=== PATIENT | male | born 1965 | race Caucasian/White ===

== ENCOUNTER 2021-12-05 09:21 | Emergency (ER) | payer OTHER, SELFPAY ==
--- NOTE | ~2021-12-05 | XR_ITS ---
XR abdomen/kub 1V DATE: 12/05/2021 11:33 INDICATION: Left flank pain TECHNIQUE: AP projection, 2 views COMPARISON: 12/05/[address] abdomen pelvis FINDINGS: Subtle small left pelvic calcification may correlate to the 2 mm calculus distal left urete r documented on 12/05/[address] abdomen pelvis examination, although this does appear to be higher than expected based upon the 12/05/2021 CT examination.. The psoas shadows are intact. No visceromegaly is evident. No bowel obstruction. Lung bases appear clear. IMPRESSION: Possible subtle small calcification corresponding to CT documented distal left ureteral c alculus, although this appears more superiorly situated than the calculus noted on CT examination. Reviewed, dictated and finalized at [facility]. Reviewed, dictated and finalized at [facility]. IMPRESSION: Possible subtle small calcification corresponding to CT documented distal left ureteral calculus, although this appears more superiorly situated t mathews the calculus noted on CT examination.
--- NOTE | ~2021-12-05 | CT_ITS ---
EXAMINATION: CT abdomen pelvis wo con DATE: 12/05/2021 09:48 INDICATION: Left lower quadrant abdominal pain. TECHNIQUE: Computed tomography (CT) of the abdomen and pelvis was performed without intravenous contr ast. Automated exposure control and iterative reconstruction technique were employed. The dose-length product was 1407.99 mGy-cm. COMPARISON: None. FINDINGS: The visualized portions of the lung bases demonstrate minimal atelectasis. No pleural effus ion. The heart size is normal. There are coronary artery calcifications. No pericardial effusion. The liver, gallbladder, spleen, pancreas, adrenal glands, and right kidney are normal. There is a 2.8 cm cyst in left kidney. There is mild left hydronephrosis and hydroureter. There is a 2 mm stone in dis vahe left ureter. The prostate is mildly enlarged. There is an umbilical hernia containing fat. There is diverticulosis of the colon without evidence of diverticulitis. There are no dilated loops of jayson l. There are no pathologically enlarged lymph nodes. There is no free intraperitoneal fluid. There ar e chronic bilateral L5 pars defects. There is a 10 mm anterolisthesis of L5 on S1. There is severe de generative disc disease at L5-S1. IMPRESSION: 1. 2 mm stone in distal left ureter with mild left hydronephrosis and hydroureter. Reviewed, dictated and finalized at [facility]. IMPRESSION: 1. 2 mm stone in distal left ureter with mild left hydronephrosis and hydroure ter.
[2021-12-05 09:26] VITALS: BP 179/82; PULSE 75; RESP 20; TEMP 36.6; O2SAT 100
--- NOTE | 2021-12-05 09:39 | ED.ABDPAIN ---
HPI - Abdominal Pain General Chief Complaint: Abdominal Pain Stated Complaint: flank pain Time Seen by Provider: 12/05/21 09:29 History of Present Illness HPI narrative: 56-year-old male presents to the emergency room complaining of left flank pain that began this morning. Patient states the pain starts in his lower back and radiates into his left lower quadrant. Denies nausea, vomiting, diarrhea. Patient states he feels like he might be constipated at this time. Also reports having decreased urinary stream patient also endorses being outside yesterday for several hours in the heat, admits to not keeping himself adequately hydrated. Denies a history of kidney stones. Has had a recent normal colonoscopy. Related Data Home Medications Medication Instructions Recorded Confirmed pantoprazole 40 mg tablet,delayed 40 mg PO DAILY 04/14/19 04/14/19 release Allergies Allergy/AdvReac Type Severity Reaction Status Date / Time No Known Allergies Allergy Verified 04/16/19 07:04 Review of Systems Review of Systems: CONSTITUTIONAL: Denies fever, chills, or sweats. EYES: Denies visual changes, redness, or discharge. ENT: Denies rhinorrhea, congestion, sore throat, or otalgia. CARDIOVASCULAR: Denies chest pain, palpitations, or edema. RESPIRATORY: Denies cough or dyspnea. GASTROINTESTINAL: Reports left flank pain GENITOURINARY: Denies dysuria or hematuria. SKIN: Denies rash or itching. MUSCULOSKELETAL: Denies back pain, joint pain, or myalgia. NEUROLOGIC: Denies headache, numbness, dizziness, or weakness. PSYCHIATRIC: Denies anxiety or depression. PMFSH Past Medical History Medical History Back pain Chronic GERD Obesity Family History Family History Other CAD (coronary artery disease) Colon polyp Diabetes mellitus Hypertension Exam Narrative: GENERAL: Well-appearing, well-nourished, no physical limitations, and in no acute distress. HEAD: Normocephalic, atraumatic. EYES: Conjunctivae normal, PERRLA and EOMI. CHEST: Clear to auscultation. No respiratory distress. No wheezes rales or rhonchi. No tenderness. HEART: Regular rate and rhythm. No murmur heard. Normal peripheral pulses. ABDOMEN: Soft, left lower quadrant tenderness, nondistended, normal active bowel sounds. BACK: No CVA tenderness; No cervical/thoracic/lumbar tenderness, step-offs, bony abnormality; FROM EXTREMITIES: Normal range of motion. No edema. No clubbing or cyanosis SKIN: Warm, dry, no rash. No noted wounds NEURO: No focal deficits. Alert and oriented x3. MAEW. CN's II-XI intact bilaterally, normal gait PSYCH: Cooperative. Normal mood and affect. Course Vital Signs Vital signs: Vital Signs Temperature 36.6 C 12/05/21 09:26 Pulse Rate 75 12/05/21 09:26 Respiratory Rate 20 12/05/21 09:26 Blood Pressure 179/82 H 12/05/21 09:26 Pulse Oximetry 100 12/05/21 09:26 Oxygen Delivery Room Air 12/05/21 09:26 Temperature 36.6 C 12/05/21 09:26 Pulse Rate 75 12/05/21 09:26 Respiratory Rate 20 12/05/21 09:26 Blood Pressure 179/82 H 12/05/21 09:26 Pulse Oximetry 100 12/05/21 09:26 Oxygen Delivery Room Air 12/05/21 09:26 MDM - Abdominal Pain MDM Narrative Medical decision making narrative: 56-year-old male presenting with left lower quadrant/flank pain. Abdominal exam is without Peritoneal signs. CT scan shows a 2 mm stone at the distal UV with mild hydronephrosis and hydroureter. UA showed evidence of a urinary tract infection. Patient was given a liter of fluid and responded well to pain medicines. 1 g of Rocephin was administered and patient will follow-up with urology. Lab Data Result diagrams: 12/05/21 09:56 12/05/21 09:56 Labs: Lab Results 12/05/21 12/05/21 12/05/21 Range/Units 09:56 09:56 09:56 WBC 9.1 (4.5-10.0) K/mm3 RBC 4.92 (4.6-6
[2021-12-05 10:03] LABS: Basophils Absolute Auto 0.1 K/mm3 (0.0-0.1); Basophils Percent Auto 0.5 % (0.2-1.2); Eosinophils Percent Auto 0.3 % (0-4.4); Hematocrit 46.2 % (42.0-52.0); Hemoglobin 15.9 g/dL (14.0-18.0); Immature Granulocyte Absolute 0.03 K/mm3 (0.00-0.031); Immature Granulocyte Percent A 0.3 % (0-0.5); Lymphocytes Absolute Auto 1.23 K/mm3 (0.9-3.2); Lymphocytes Percent Auto 13.5 % (18.3-44.2); Mean Corpuscular HGB Conc 34.4 g/dl (32-36); Mean Corpuscular Hemoglobin 32.3 pg (26-34); Mean Corpuscular Volume 93.9 fl (80-100); Monocytes Absolute Auto 0.7 K/mm3 (0.1-0.6); Monocytes Percent Auto 7.6 % (2.6-8.5); Neutrophils Absolute Auto 7.1 K/mm3 (1.3-6.7); Neutrophils Percent Auto 77.8 % (45.5-73.1); Platelet Count Result 230 k/mm3 (150-375); Red Blood Count 4.92 M/mm3 (4.6-6.20); Red Cell Distribution Width 12.5 % (11.5-14.5); White Blood Count 9.1 K/mm3 (4.5-10.0)
[2021-12-05 10:06] LABS: Add Urine Microscopic? YES; Appearance Urine Clear (Clear); Bilirubin Urine Negative (Negative); Blood Urine 2+ (Negative); Color Urine Yellow (Yellow); Glucose Urine UA 2+ mg/dL (Negative); Ketones Urine Negative (Negative); Leukocyte Esterase Ur Negative LEU/UL (Negative); Nitrate Urine Negative (Negative); Protein Urine Negative (Negative); Specific Grav Ur 1.025 (1.001-1.035); Urobilinogen Urine 0.2 mg/dL (<2.0)
[2021-12-05 10:13] LABS: Alanine Aminotransferase 32 U/L (6-50); Albumin Level 4.4 g/dL (3.5-5.1); Alkaline Phosphatase 64 U/L (38-126); Anion Gap 8 mmol/L (8-16); Aspartate Amino Transferase 22 U/L (17-59); Bilirubin,Total 0.5 mg/dL (0.2-1.3); Blood Urea Nitrogen 23 mg/dL (9-20); Calcium 8.6 mg/dL (8.4-10.2); Carbon Dioxide 25 mmol/L (22-30); Chloride 101 mmol/L (98-107); Estimated CRCL calculation 87 ml/min; Estimated Glomerular Filt Rate > 60; Glucose 339 mg/dL (65-110); Lipase 88 U/L (23-300); Potassium 4.5 mmol/L (3.4-5.0); Sodium 134 mmol/L (137-145)
[2021-12-05 10:20] LABS: Budding Yeast Urine Present /hpf; Mucus Urine Rare /lpf; Squamous Epithelial Cell Urine Rare /hpf (Few); Uric Acid Crystals Urine Present /hpf
[2021-12-05] MEDS: SODIUM CHLORIDE 0.9% IV 1,000 ML 999 ML IV CONT (10:32)
[2021-12-05] MEDS: fentaNYL CITRATE INJ (*CRX) 100 MCG/2 ML VIAL 50 MCG IV PUSH (10:33)
[2021-12-05] MEDS: KETOROLAC 30 MG/ML VIAL (*BKC) IV PUSH (10:34)
[2021-12-05 11:59] VITALS: BP 147/84; PULSE 72; RESP 16; O2SAT 98
== END 2021-12-05 12:00 | disposition home or self-care (01) ==
PROVIDERS: Emergency Provider Nurse Practitioner Family
DX: N20.0 Calculus of kidney (principal); K21.9 Gastro-esophageal reflux disease without esophagitis
CPT/HCPCS: 36415; 74018; 74176; 80053; 81001; 83690; 85025; 96361; 96374; 96375; 99284; J0696; J1885; J3010; J7030

== ENCOUNTER 2023-11-29 08:52 | Emergency (ER) | payer OTHER, SELFPAY ==
--- NOTE | ~2023-11-29 | CT_ITS ---
EXAMINATION: CT abdomen pelvis wo con DATE: 11/29/2023 09:37 INDICATION: Right flank pain. TECHNIQUE: Computed tomography (CT) of the abdomen and pelvis was performed without intravenous contr ast. Automated exposure control and iterative reconstruction technique were employed. The dose-length product was 741.33 mGy-cm. COMPARISON: CT abdomen and pelvis 12/05/2021 FINDINGS: The visualized portions of the lung bases demonstrate minimal atelectasis. No pleural effus ion. The heart size is normal. No pericardial effusion. The liver, gallbladder, spleen, pancreas, and adrenal glands are normal. There is a 13 mm cyst in left kidney. There is mild right hydronephrosis. There is a 2 mm stone in proximal right ureter. The prostate is mildly enlarged. There is an umbilic al hernia containing fat. There are no dilated loops of bowel. The appendix is normal. There are no p athologically enlarged lymph nodes. There is no free intraperitoneal fluid. There are chronic bilater al L5 pars defects. There is 10 mm anterolisthesis of L5 on S1. There is severe lower lumbar spondylo sis. IMPRESSION: 1. 2 mm stone in proximal right ureter with mild right hydronephrosis. Reviewed, dictated and finalized at location [facility].
--- NOTE | 2023-11-29 09:09 | ED.GENADULT ---
HPI - General Adult General Chief complaint: Urogenital-Male Stated complaint: Kidney stone? Time Seen by Provider: 11/29/23 09:04 History of Present Illness HPI narrative: Patient is 58-year-old gentleman who presents emergency department chief complaint of right flank pain radiating down the right lower quadrant. Patient reports that he has history of kidney stones was able to pass them previously the patient states that the pain started suddenly this morning reports he is unable to get comfortable reports that he is hurting so bad that he is sweating the patient reports history of hypertension and diabetes Related Data Allergies Allergy/AdvReac Type Severity Reaction Status Date / Time No Known Allergies Allergy Verified 11/29/23 09:15 Review of Systems Review of Systems: A 10 system review of systems was completed on the patient and is negative except for what is stated in the HPI. Nursing and ancillary documentation was reviewed. PMFSH Past Medical History Medical History Allergies Back pain BMI 35.0-35.9,adult BMI 37.0-37.9, adult Bumps on skin Chest pain Chronic GERD Diabetes Diabetes mellitus with hyperglycemia Elevated BP without diagnosis of hypertension Encounter to establish care Family history of [place] (myocardial infarction) Hyperlipidemia Hypersomnia Hypertension senior care (current) use of oral hypoglycemic drugs Low back pain Obesity Polycythemia Screening for diabetes mellitus Snoring Family History Family History Father Cancer Heart disease Other CAD (coronary artery disease) Colon polyp Diabetes mellitus Hypertension Social History Social History Smoking status: Never smoker Alcohol intake: never Substance use: never Lack of Transportation: No Lack of Food: Never True Current Housing: I Have Housing Concerned About Future Housing: No Difficulty Paying Gas/Electric Bills: No Difficulty Paying for Meds: No Currently Unemployed: No Education: High School Diploma/GED Difficulty w/ Childcare or Family Care: No Exam Narrative: GENERAL: Well-appearing, well-nourished, and in moderate acute pain distress. Diaphoretic HEAD: Normocephalic, atraumatic. EYES: PERRLA and EOMI. ENT: Nares clear, no rhinorrhea or epistaxis. Mucous membranes moist. NECK: Supple. CHEST: Clear to auscultation. No respiratory distress. HEART: Regular rate and rhythm. No murmur heard. Normal peripheral pulses. ABDOMEN: Soft, nontender, nondistended, normal active bowel sounds. EXTREMITIES: Normal range of motion. No edema. SKIN: Warm, dry, no rash. NEURO: No focal deficits. Alert and oriented x3. PSYCH: Normal mood and affect. Course Vital Signs Vital signs: Vital Signs Temperature 36.4 C L 11/29/23 09:15 Pulse Rate 70 11/29/23 09:15 Respiratory Rate 19 11/29/23 09:15 Blood Pressure 172/91 H 11/29/23 09:15 Pulse Oximetry 100 11/29/23 09:15 Oxygen Delivery Room Air 11/29/23 09:15 Temperature 36.4 C L 11/29/23 09:15 Pulse Rate 71 11/29/23 10:19 Respiratory Rate 15 11/29/23 10:19 Blood Pressure 154/76 H 11/29/23 10:19 Pulse Oximetry 97 11/29/23 10:19 Oxygen Delivery Room Air 11/29/23 09:15 Medical Decision Making [facility] Narrative Medical decision making narrative: Differential diagnosis includes UTI, ureterolithiasis, pyelonephritis Laboratory studies were obtained on the patient showed normal CBC normal CMP CT scan of the abdomen pelvis showed a 2 mm proximal stone Patient was started on Flomax patient will be given pain control and antiemetics and a urine strainer and referred to Urology. Vital Signs Vital Signs: Vital Signs Temperature 36.4 C L 11/29/23 09:15 Pulse Rate 70 11/29/23 09:15 Respiratory Rate 19 11/28
[2023-11-29 09:15] VITALS: BP 172/91; PULSE 70; RESP 19; TEMP 36.4; O2SAT 100
[2023-11-29] MEDS: ONDANSETRON INJ 4 MG/2 ML VIAL IV PUSH (09:20)
[2023-11-29] MEDS: MORPHINE SULFATE (*CRX) 4 MG/ML INJ IV PUSH (09:21)
[2023-11-29] MEDS: SODIUM CHLORIDE 0.9% IV 1,000 ML 999 ML IV CONT (09:21)
[2023-11-29 09:30] LABS: Basophils Absolute Auto 0.1 K/mm3 (0.0-0.1); Basophils Percent Auto 0.9 % (0.2-1.2); Eosinophils Percent Auto 0.5 % (0-4.4); Hematocrit 45.6 % (42.0-52.0); Hemoglobin 15.7 g/dL (14.0-18.0); Immature Granulocyte Absolute 0.01 K/mm3 (0.00-0.031); Immature Granulocyte Percent A 0.2 % (0-0.5); Lymphocytes Percent Auto 28.7 % (18.3-44.2); Mean Corpuscular HGB Conc 34.4 g/dl (32-36); Mean Corpuscular Hemoglobin 32.7 pg (26-34); Monocytes Absolute Auto 0.6 K/mm3 (0.1-0.6); Monocytes Percent Auto 9.9 % (2.6-8.5); Neutrophils Absolute Auto 3.3 K/mm3 (1.3-6.7); Neutrophils Percent Auto 59.8 % (45.5-73.1); Platelet Count Result 230 k/mm3 (150-375); Red Cell Distribution Width 12.1 % (11.5-14.5); White Blood Count 5.6 K/mm3 (4.5-10.0)
[2023-11-29 09:38] LABS: Alanine Aminotransferase 36 U/L (6-50); Albumin Level 4.4 g/dL (3.5-5.1); Alkaline Phosphatase 63 U/L (38-126); Anion Gap 8 mmol/L (4-12); Aspartate Amino Transferase 23 U/L (17-59); Bilirubin,Total 0.8 mg/dL (0.2-1.3); Blood Urea Nitrogen 23 mg/dL (9-20); Calcium 9.5 mg/dL (8.4-10.2); Carbon Dioxide 24 mmol/L (22-30); Chloride 105 mmol/L (98-107); Estimated CRCL calculation 90 ml/min; Estimated Glomerular Filt Rate > 60; Glucose 284 mg/dL (65-110); Lipase 68 U/L (23-300); Sodium 137 mmol/L (137-145)
[2023-11-29] MEDS: TAMSULOSIN HCL 0.4 MG CAPSULE PO (10:12)
[2023-11-29 10:19] VITALS: BP 154/76; PULSE 71; RESP 15; O2SAT 97
[2023-11-29 10:43] LABS: Bacteria Urine None Seen /hpf; Need Manual Microscopic Reviewed; RBC Urine >100 /hpf (0-2); Squamous Epithelial Cell Urine None Seen /hpf (Few); WBC Urine 0-5 /hpf (0-3)
[2023-11-29 10:46] LABS: Appearance Urine Turbid (Clear); Bilirubin Urine Negative (Negative); Blood Urine 3+ (Negative); Color Urine Dark Brown (Yellow); Glucose Urine UA 3+ mg/dL (Negative); Ketones Urine Negative (Negative); Leukocyte Esterase Ur 1+ LEU/UL (Negative); Nitrate Urine Negative (Negative); Protein Urine 2+ mg/dL (Negative); Specific Grav Ur 1.026 (1.001-1.035); Urobilinogen Urine 0.2 mg/dL (<2.0)
[2023-11-29 10:47] LABS: Add Urine Microscopic? YES
== END 2023-11-29 11:33 | disposition home or self-care (01) ==
PROVIDERS: Emergency Provider Emergency Medicine; PCP Nurse Practitioner Family
DX: N13.2 Hydronephrosis with renal and ureteral calculous obstruction (principal); E11.9 Type 2 diabetes mellitus without complications; D75.1 Secondary polycythemia; K21.9 Gastro-esophageal reflux disease without esophagitis; E78.5 Hyperlipidemia, unspecified; Z87.442 Personal history of urinary calculi; Z79.84 Long term (current) use of oral hypoglycemic drugs; Z79.85 Long-term (current) use of injectable non-insulin antidiabetic drugs; Z79.899 Other long term (current) drug therapy
CPT/HCPCS: 36415; 74176; 80053; 81001; 83690; 85025; 96361; 96374; 96375; 99284; A9270; J2270; J2405; J7030

== ENCOUNTER → 2024-03-13 14:21 | Outpatient (CLI) | payer OTHER, SELFPAY ==
--- NOTE | ~2024-03-13 | XR_ITS ---
XR hip LT min 2V 03/13/2024 14:32 INDICATION: Left hip pain. No injury. PROCEDURE: 2 views left hip COMPARISON: No prior studies for comparison. FINDINGS: Fracture, dislocation or subluxation is not identified. The soft tissues appear within norm al limits. No foreign bodies are identified. IMPRESSION: 1: NO ACUTE BONE OR JOINT ABNORMALITY IDENTIFIED. Reviewed, dictated and finalized at location [facility].
== END ==
LOC: EXPTRAD 14:23
PROVIDERS: PCP Nurse Practitioner Family; Visit Provider Nurse Practitioner Family
DX: M25.552 Pain in left hip (principal)
CPT/HCPCS: 73502

== ENCOUNTER 2024-11-05 15:38 | Emergency (ER) | payer OTHER, SELFPAY ==
[2024-11-05 15:44] VITALS: BP 143/88; PULSE 84; RESP 18; TEMP 36.5; O2SAT 96
--- NOTE | 2024-11-05 16:03 | ECG_ITS ---
Test Date: 2024-11-05 16:09:58 Measurements Intervals [place] Rate: 71 P: 27 NM: 159 QRS: -4 QRSD: 110 T: -5 QT: 356 QTc: 388 Interpretive Statements SINUS RHYTHM DELAYED PRECORDIAL R/S TRANSITION MINIMAL Q WAVES- HIGH LATERAL LEADS BORDERLINE T WAVE ABNORMALITY- INFERIOR LEADS BASELINE ARTIFACT- I, II, III, AVR, AVL ,AVF BORDERLINE ECG No previous ECG available for comparison Electronically Signed On 11-06-2024 08:10:10 CDT by Олег Fraga D.O.
--- NOTE | 2024-11-05 16:04 | ED.GENADULT ---
HPI - General Adult General Chief complaint: Unspecified Stated complaint: dizziness Time Seen by Provider: 11/05/24 15:45 Source: patient and RN notes reviewed Mode of arrival: ambulatory Limitations: no limitations History of Present Illness HPI narrative: 59-year-old male presents Express Care complaining of dizziness for 1 week. Patient reports at the dizziness is worse when he is lying flatter if he turns his head too quickly. Patient states he feels like the room was spinning aware that he has and motion. Patient denies any lightheadedness or syncope. Patient denies any slurred speech, weakness, confusion, vision changes, chest pain, difficulty breathing, or headaches. Patient says that his right ear has been hurting as well. Patient denies any difficulty ambulating. Patient does have a history of diabetes is currently on multiple medications for it. Patient has not tried anything [id number] did try the help the dizziness. Related Data Allergies Allergy/AdvReac Type Severity Reaction Status Date / Time No Known Allergies Allergy Verified 11/05/24 15:45 Review of Systems Review of Systems: CONSTITUTIONAL: Denies fever, chills, or sweats. EYES: Denies visual changes, redness, or discharge. ENT: Denies rhinorrhea, congestion, sore throat,. Positive for otalgia. CARDIOVASCULAR: Denies chest pain, palpitations, presyncope, lightheadedness, syncope, or edema. Positive for dizziness. RESPIRATORY: Denies cough or dyspnea. GASTROINTESTINAL: Denies abdominal pain, nausea, vomiting, or diarrhea. GENITOURINARY: Denies dysuria or hematuria. SKIN: Denies rash or itching. MUSCULOSKELETAL: Denies back pain, joint pain, or myalgia. NEUROLOGIC: Denies headache, numbness, slurred speech, focal weakness, facial droop, or weakness. PSYCHIATRIC: Denies anxiety or depression. All other systems reviewed are negative, except as documented in HPI. 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 Hyperlipidemia Diabetes Bumps on skin Hypersomnia Snoring Chest pain Low back pain Encounter to establish care Family history of [place] (myocardial infarction) BMI 37.0-37.9, adult Screening for diabetes mellitus Allergies Obesity Back pain Chronic GERD Family History Family History Father Cancer Heart disease Other CAD (coronary artery disease) Colon polyp Diabetes mellitus Hypertension Social History Social History Smoking status: Never smoker Alcohol intake: never Substance use: never Lack of Transportation: No Lack of Food: Never True Current Housing: I Have Housing Concerned About Future Housing: No Difficulty Paying Gas/Electric Bills: No Difficulty Paying for Meds: No Currently Unemployed: No Education: High School Diploma/GED Difficulty w/ Childcare or Family Care: No Comments At the time of my signature, I reviewed and agree with the nursing past medical, surgical, social, and family history. There is no relevant family history pertinent to the patient complaint. Exam Narrative: GENERAL: This is a well-nourished, well-developed adult, in no apparent distress. They are non ill-appearing, nontoxic appearing. Patient is ambulatory with a steady gait. HEAD: normocephalic, atraumatic. EYES: Sclera clear/white. Conjunctiva normal. Vision is grossly intact. Extraocular movements intact. No nystagmus at rest. Pupils PERRLA. Derby-Hallpike maneuver showed horizontal nystagmus towards the right with severe symptoms. EARS: External ears normal, auditory canals clear and without drainage, TMs normal without perforation. Hearing grossly intact. NOSE: External nose normal with no obvious nasal discharge, nasal turbinates without redness, no rhinorrhea. Oropharynx: Mucous membranes moist, tongue midline. NECK: Neck supple, non-tender without lymphadenopathy, masses or thyromegaly. No carotid bruits bilaterally CARDIOVASCULAR: Regular rate and rhythm without murmurs, gallops, or rubs. RESPIRATORY: Clear to auscultation. Breath sounds equal bilaterally. No wheezes, rales, or rhonchi. SKIN: warm, Dry, intact with no suspicious lesions or rash, good texture and turgor. NEURO: awake, alert, and oriented to person, place and time. There were no obvious focal neurologic abnormalities. 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 BACK: Nontender without deformity. Course Course Emergency Course: Portions of this record may have been created with voice recognition software Level of Care: Express Care Visit Vital Signs Vital signs: Vital Signs Temperature 97.7 F 11/05/24 15:44 Pulse Rate 84 11/05/24 15:44 Respiratory Rate 18 11/05/24 15:44 Blood Pressure 143/88 H 11/05/24 15:44 Pulse Oximetry 96 11/05/24 15:44 Oxygen Delivery Room Air 11/05/24 15:44 Temperature 97.7 F 11/05/24 15:44 Pulse Rate 83 11/05/24 16:12 Respiratory Rate 18 11/05/24 15:44 Blood Pressure 131/84 11/05/24 16:13 Pulse Oximetry 96 11/05/24 15:44 Oxygen Delivery Room Air 11/05/24 15:44 Reviewed Medical Decision Making MDM Narrative Medical decision making narrative: NIH score 0, low suspicion for CVA. Symptoms have persisted over the last week. During Todd-Hallpike maneuver patient developed severe symptoms of dizziness with horizontal nystagmus towards the right. Symptoms consistent with BPPV or peripheral vertigo. Neurological exam otherwise unremarkable. Blood glucose was 312, EKG sinus rhythm without ischemic findings. Patient blood sugars elevated but he denies any polydipsia, polyphagia, polyuria, abnormal weight loss, there is no signs of dehydration, patient is not tachycardic. Advised patient to follow-up about blood sugar with his PCP and discuss further management options including insulin. Patient orthostatics are negative. Will treat with meclizine. Discussed physical exam findings. Advised supportive measures and signs/symptoms to go to the ER. Pt is appropriate for outpt treatment and f/u. Differential Diagnosis Differential Diagnosis: Vertigo, benign paroxysmal positional vertigo, vestibular disorder, CVA Vital Signs Vital Signs: Vital Signs Temperature 97.7 F 11/05/24 15:44 Pulse Rate 84 11/05/24 15:44 Respiratory Rate 18 11/05/24 15:44 Blood Pressure 143/88 H 11/05/24 15:44 Pulse Oximetry 96 11/05/24 15:44 Oxygen Delivery Room Air 11/05/24 15:44 Temperature 97.7 F 11/05/24 15:44 Pulse Rate 83 11/05/24 16:12 Respiratory Rate 18 11/05/24 15:44 Blood Pressure 131/84 11/05/24 16:13 Pulse Oximetry 96 11/05/24 15:44 Oxygen Delivery Room Air 11/05/24 15:44 Lab Data Labs: Lab Results 11/05/24 Range/Units 16:06 POC Capillary Glucose 312 H (65-105) mg/dl ECG Data EKG #1: Attestation: I personally reviewed and interpreted this ECG as follows: ECG completion date: 11/05/24 ECG completion time: 16:09 Prior ECG tracings: not available for review EKG Interpretation: normal rate, sinus rhythm, no ectopy, normal QRS, normal QT and NL axis Critical Care Time Critical Care Time Critical Care Time: No Discharge Plan Discharge Clinical Impression: Dizziness Patient Disposition: Home Condition: Stable Instructions: Benign Paroxysmal Positional Vertigo (ED) Additional Instructions: Your EKG is normal today. It appears her symptoms are likely related to vertigo or benign proximal positional vertigo, please take the meclizine as directed. Do not drive or operate machinery while taking meclizine as it may make you drowsy. Blood sugar is elevated today, please follow-up with your PCP for further management of your diabetes. Follow-up with PCP in 3-5 days. Please go to the ER if you develops any signs of dehydration, excessive urination, excessive hunger, excessive thirst, slurred speech, facial drooping, confusion, one-sided weakness, difficulty walking, uncontrollable dizziness, headaches, vision changes, or any other concerns. Patient Language: Korean Prescriptions: New meclizine 25 mg tablet 25 mg PO QID PRN (Reason: vertigo or dizziness) Qty: 30 0RF No Action dapagliflozin propanediol [Farxiga] 10 mg tablet 10 mg PO QAM Qty: 90 3RF (DME) blood-glucose meter [Blood Glucose Monitoring] Kit See Rx Instructions .Route Qty: 1 0RF Rx Instructions: check fasting blood sugar daily lisinopril 20 mg tablet 20 mg PO DAILY Qty: 90 3RF atorvastatin 10 mg tablet 10 mg PO DAILY Qty: 90 3RF Follow-up/Referrals: Grimaldo,Stephani, COATER [Primary Care Provider] - Time of Disposition: 16:26
[2024-11-05 16:11] VITALS: BP 140/77; PULSE 74
[2024-11-05 16:12] VITALS: BP 136/81; PULSE 83
[2024-11-05 16:13] VITALS: BP 131/84
[2024-11-05 16:15] LABS: Glucose Point of Care 312 mg/dl (65-105)
== END 2024-11-05 16:30 | disposition home or self-care (01) ==
PROVIDERS: PCP Nurse Practitioner Family
DX: R42 Dizziness and giddiness (principal); I10 Essential (primary) hypertension; E11.9 Type 2 diabetes mellitus without complications; E78.5 Hyperlipidemia, unspecified; K21.9 Gastro-esophageal reflux disease without esophagitis; E66.9 Obesity, unspecified; Z68.34 Body mass index [BMI] 34.0-34.9, adult; Z82.49 Family history of ischemic heart disease and other diseases of the circulatory system
CPT/HCPCS: 82948; 93005; 99213; G0463

== ENCOUNTER 2025-01-26 09:32 | Outpatient (CLI) | payer OTHER, SELFPAY ==
--- NOTE | 2025-01-26 09:43 | EST_ITS ---
Patient Info Name: Ady Dale Age: 59 years : 1965 Gender: Male Ht: 71 in Wt: 250 lbs BSA: 2.42 m2 HR: 64 bpm BP: 158 / 85 mmHg Exam Date: 01/26/2025 9:43 AM Patient Status: O Admit Date: 01/26/2025 Exam Type: CA stress test treadmill A treadmill exercise stress test was performed. Staff Attending Provider: Stephani Grimaldo Exercise Technologist: Lucretia De La Fuente Exercise Physician: Олег Fraga DO Summary 1. 1. Negative [facility] exercise stress test for ischemic ST changes by ECG criteria. 2. 2. Good functional capacity, achieving 10 METs of workload. 3. 3. Hypertensive response to exercise. 4. 4. Appropriate HR response to exercise. 5. 5. Appropriate HR recovery at 1 minute post exercise. 6. 6. No imaging with stress testing. 7. 7. Patient informed of the above results. Protocol: [place] Stress ECG Details Stage: REST Duration (min): 1 min : 30 sec Speed (mph): 0.0 Grade (%): 0 HR (bpm): 64 SBP (mmHg): 158 DBP (mmHg): 85 METS: --- Stage: REST Duration (min): 10 min : 31 sec Speed (mph): 0.0 Grade (%): 0 HR (bpm): 67 SBP (mmHg): 158 DBP (mmHg): 85 METS: --- Stage: STAGE 1 Duration (min): 1 min : 0 sec Speed (mph): 1.7 Grade (%): 10 HR (bpm): 94 SBP (mmHg): 158 DBP (mmHg): 85 METS: --- Stage: STAGE 1 Duration (min): 2 min : 0 sec Speed (mph): 1.7 Grade (%): 10 HR (bpm): 95 SBP (mmHg): 158 DBP (mmHg): 85 METS: --- Stage: STAGE 1 Duration (min): 3 min : 0 sec Speed (mph): 1.7 Grade (%): 10 HR (bpm): 97 SBP (mmHg): 195 DBP (mmHg): 84 METS: --- Stage: STAGE 2 Duration (min): 1 min : 0 sec Speed (mph): 2.5 Grade (%): 12 HR (bpm): 105 SBP (mmHg): 195 DBP (mmHg): 84 METS: --- Stage: STAGE 2 Duration (min): 2 min : 0 sec Speed (mph): 2.5 Grade (%): 12 HR (bpm): 109 SBP (mmHg): 197 DBP (mmHg): 86 METS: --- Stage: STAGE 2 Duration (min): 3 min : 0 sec Speed (mph): 2.5 Grade (%): 12 HR (bpm): 114 SBP (mmHg): 197 DBP (mmHg): 86 METS: --- Stage: STAGE 3 Duration (min): 1 min : 0 sec Speed (mph): 3.4 Grade (%): 14 HR (bpm): 123 SBP (mmHg): 217 DBP (mmHg): 86 METS: --- Stage: STAGE 3 Duration (min): 2 min : 0 sec Speed (mph): 3.4 Grade (%): 14 HR (bpm): 128 SBP (mmHg): 217 DBP (mmHg): 86 METS: --- Stage: STAGE 3 Duration (min): 3 min : 0 sec Speed (mph): 3.4 Grade (%): 14 HR (bpm): 135 SBP (mmHg): 241 DBP (mmHg): 73 METS: --- Stage: RECOVERY Duration (min): 0 min : 59 sec Speed (mph): 0.0 Grade (%): 0 HR (bpm): 118 SBP (mmHg): 241 DBP (mmHg): 73 METS: --- Stage: RECOVERY Duration (min): 1 min : 59 sec Speed (mph): 0.0 Grade (%): 0 HR (bpm): 104 SBP (mmHg): 241 DBP (mmHg): 73 METS: --- Stage: RECOVERY Duration (min): 2 min : 59 sec Speed (mph): 0.0 Grade (%): 0 HR (bpm): 101 SBP (mmHg): 219 DBP (mmHg): 65 METS: --- Stage: RECOVERY Duration (min): 3 min : 59 sec Speed (mph): 0.0 Grade (%): 0 HR (bpm): 91 SBP (mmHg): 219 DBP (mmHg): 65 METS: --- Stage: RECOVERY Duration (min): 4 min : 59 sec Speed (mph): 0.0 Grade (%): 0 HR (bpm): 89 SBP (mmHg): 147 DBP (mmHg): 65 METS: --- Stage: RECOVERY Duration (min): 5 min : 59 sec Speed (mph): 0.0 Grade (%): 0 HR (bpm): 90 SBP (mmHg): 147 DBP (mmHg): 65 METS: --- Stage: RECOVERY Duration (min): 6 min : 59 sec Speed (mph): 0.0 Grade (%): 0 HR (bpm): 90 SBP (mmHg): 151 DBP (mmHg): 77 METS: --- Stage: RECOVERY Duration (min): 7 min : 13 sec Speed (mph): 0.0 Grade (%): 0 HR (bpm): 88 SBP (mmHg): 151 DBP (mmHg): 77 METS: --- Rest HR: 67 bpm Peak HR: 135 bpm Rest Sys BP: 158 mmHg Peak Sys BP: 241 mmHg Max Pred HR: 159 bpm % Max Pred HR: 85 % Target HR: 135 bpm Max RPP: 32,535 bpm*mmHg Burns Score: 4 BP Response: Patient exhibited a hypertensive response with stress Termination Reason: Reached target heart rate or workload Cardiac Symptoms: Shortness of breath Max ST Seg Deviation: -1.10 mm Total Time: 9 min : 0 sec Rest Moore BP: 85 mmHg Peak Moore BP: 73 mmHg Angina Score: None Total METS: 10.3 Resting ECG Sinus rhythm. Stress ECG No ST changes during exercise. There was a 0.[address] depression in inferior leads during recovery. Arrhythmias None. Report Signatures
--- NOTE | 2025-01-26 09:43 | ECG_ITS ---
Test Date: 2025-01-26 10:08:08 Measurements Intervals Warden Rate: 61 P: 24 FL: 167 QRS: 0 QRSD: 93 T: -1 QT: 384 QTc: 387 Interpretive Statements SINUS RHYTHM LOW QRS VOLTAGE IN PRECORDIAL LEADS [QRS DEFLECTION < 1.0 mV IN CHEST LEADS] Compared to ECG 11/05/2024 16:09:58 Low QRS voltage now present Electronically Signed On 01-26-2025 10:44:37 CDT by Cesar Beck M.D.
== END 2025-01-26 09:33 | disposition home or self-care (01) ==
LOC: ANHCARD 09:33
PROVIDERS: PCP Nurse Practitioner Family; Visit Provider Nurse Practitioner Family
DX: R07.9 Chest pain, unspecified (principal); R53.83 Other fatigue; Z82.49 Family history of ischemic heart disease and other diseases of the circulatory system; R94.31 Abnormal electrocardiogram [ECG] [EKG]
CPT/HCPCS: 93005; 93017